=== PATIENT | female | born 1975 | race Caucasian/White ===

== ENCOUNTER 2019-02-05 19:47 | Emergency (ER) | payer OTHER ==
[~2019-02-05] VITALS: Ht 167.6 cm; Wt 68.0 kg
[2019-02-05] MEDS ORDERED: IV NORMAL SALINE 1,000ML 1,000 ML IV SCH (20:12)
--- NOTE | 2019-02-05 20:20 | PHYS DOC ---
Past History Past Medical History: Other Additional Past Medical Histor: tachycardia Smoking: Non-smoker Alcohol Use: Rarely Drug Use: None Adult General Chief Complaint Chief Complaint: CHEST PAIN HPI HPI Patient is a 43-year-old female presents complaining of chest discomfort that started this evening. It is worse with moving around. She has a history of a tachycardia for which she takes metoprolol each evening. She reports taking it last night. Has not taken tonight's dose. Feels like her heart is beating fast. She denies missing any recent doses. She recently traveled here with her from [facility]. Denies any new leg swelling. No known hypercoagulable state. No trauma. No fever or cough. Symptoms are mild to moderate in intensity.[] Review of Systems Review of Systems Constitutional: Denies fever or chills [] Eyes: Denies change in visual acuity, redness, or eye pain [] HENT: Denies nasal congestion or sore throat [] Respiratory: Denies cough or shortness of breath [] Cardiovascular: No additional information not addressed in HPI [] GI: Denies abdominal pain, nausea, vomiting, bloody stools or diarrhea [] : Denies dysuria or hematuria [] Musculoskeletal: Denies back pain or joint pain [] Integument: Denies rash or skin lesions [] Neurologic: Denies headache, focal weakness or sensory changes [] Endocrine: Denies polyuria or polydipsia [] All other systems were reviewed and found to be within normal limits, except as documented in this note. Allergies Allergies Allergies Coded Allergies Type Severity Reaction Last Updated Verified latex Adverse Reaction Unknown 02/05/19 Yes Physical Exam Physical Exam Constitutional: Well developed, well nourished, no acute distress, non-toxic appearance. [] HENT: Normocephalic, atraumatic, bilateral external ears normal, oropharynx moist, no oral exudates, nose normal. [] Eyes: PERRLA, EOMI, conjunctiva normal, no discharge. [] Neck: Normal range of motion, no tenderness, supple, no stridor. [] Cardiovascular:Heart rate is tachycardic with a regular rhythm, no murmur [] Lungs & Thorax: Bilateral breath sounds clear to auscultation [] Abdomen: Bowel sounds normal, soft, no tenderness, no masses, no pulsatile masses. [] Skin: Warm, dry, no erythema, no rash. [] Back: No tenderness, no CVA tenderness. [] Extremities: No tenderness, no cyanosis, no clubbing, ROM intact, no edema. [] Neurologic: Alert and oriented X 3, normal motor function, normal sensory function, no focal deficits noted. [] Psychologic: Affect normal, judgement normal, mood normal. [] EKG EKG EKG shows a sinus tachycardia at 118 bpm, no ST elevations. Normal axis, QTC of 501 ms, no old EKG available for comparison. Interpreted by me at 2000[] Radiology/Procedures Radiology/Procedures PROCEDURE: PORTABLE CHEST 1V Exam: Chest one view INDICATION: Chest pain TECHNIQUE: Frontal view of the chest Comparisons: None FINDINGS: The cardiomediastinal silhouette and pulmonary vessels are within normal limits. The lung and pleural spaces are clear. IMPRESSION: No acute cardiopulmonary process.[] Course & Med Decision Making Course & Med Decision Making Pertinent Labs and Imaging studies reviewed. (See chart for details) ED course: Patient arrived, was placed in bed, and tolerated exam well. She was given medicine for the tachycardia which improved her heart rate. Symptoms improved as well. After the return of laboratory and imaging findings, these were discussed with the patient and family who voiced understanding. All questions were answered. She was discharged in improved condition. Medical decision making: There is no evidence of PE, pneumothorax, pneumonia, acute coronary syndrome, thoracic aneurysm dissection, nor esophageal rupture. 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 Have addressed this with medicine. Dragon Disclaimer Dragon Disclaimer This electronic medical record was generated, in whole or in part, using a voice recognition dictation system. Departure Departure: Impression: Primary Impression: Chest pain Disposition: HOME, SELF-CARE Condition: IMPROVED Patient Instructions: Chest Pain (Nonspecific) Additional Instructions: Follow-up with your primary care team in 2 days. Drink plenty of fluids. Take your medication as prescribed. Return to the ER if worsening discomfort, difficulty breathing, or any other concerns. Scripts Meloxicam (MELOXICAM) 7.5 Mg Tablet 7.5 MG PO DAILY for PAIN, #20 TAB Prov: JUAN BENOIT DO 02/05/19 Problem Qualifiers Primary Impression: Chest pain Chest pain type: unspecified Qualified Codes: R07.9 - Chest pain, unspecified JUAN BENOIT DO Feb 05, 2019 20:20
[2019-02-05 20:21] LABS: BASO % 0 % (0-3); EOS % 0 % (0-3); HEMATOCRIT 37.3 % (36.0-47.0); HEMOGLOBIN 12.1 g/dL (12.0-15.5); LYMPH # 3.1 x10^3/uL (1.0-4.8); LYMPH % 25 % (24-48); MEAN CORPUSCULAR HEMOGLOBIN 28 pg (25-35); MEAN CORPUSCULAR HGB CONC 32 g/dL (31-37); MEAN CORPUSCULAR VOLUME 88 fL (79-100); MONO # 1.2 x10^3/uL (0.0-1.1); MONO % 10 % (0-9); NEUT # 8.1 x10^3uL (1.8-7.7); NEUT % 65 % (31-73); PLATELET COUNT 311 x10^3/uL (140-400); RED BLOOD COUNT 4.25 x10^6/uL (3.50-5.40); RED CELL DISTRIBUTION WIDTH 12.9 % (11.5-14.5); WHITE BLOOD COUNT 12.4 x10^3/uL (4.0-11.0)
[2019-02-05] MEDS ORDERED: ASPIRIN 81 MG TAB.CHEW PO ONE (20:30)
[2019-02-05] MEDS ORDERED: METOPROLOL TARTRATE 5 MG/5 ML VIAL. IV ONE (20:30)
[2019-02-05 20:32] LABS: PREG TEST PT QUAL NEGATIVE (NEG)
[2019-02-05 20:38] LABS: ALBUMIN 3.6 g/dL (3.4-5.0); ALBUMIN/GLOBULIN RATIO 0.9 (1.0-1.7); CALCIUM 9.5 mg/dL (8.5-10.1); CREATININE 0.9 mg/dL (0.6-1.0); GFR 68.3; MAGNESIUM 1.9 mg/dL (1.8-2.4); POTASSIUM 3.3 mmol/L (3.5-5.1); TOTAL BILIRUBIN 0.2 mg/dL (0.2-1.0); TOTAL PROTEIN 7.5 g/dL (6.4-8.2)
--- NOTE | 2019-02-05 21:06 | EKG ---
[address] [address] Test Date: 2019-02-05 Test Time: 20:00:49 Pat Name: DEANNE GARCIA Department: Room: Gender: F Technology Lead: : 1975 Requested By: JUAN BENOIT Order Number: [id number] Reading MD: Measurements Intervals [place] Rate: 118 P: -49 NH: 110 QRS: 31 QRSD: 62 T: 42 QT: 356 QTc: 501 Interpretive Statements SINUS TACHYCARDIA NO SPECIFIC ECG ABNORMALITIES RI6.01 No previous ECG available for comparison
--- NOTE | 2019-02-05 21:12 | RAD ---
Exam: Chest one view INDICATION: Chest pain TECHNIQUE: Frontal view of the chest Comparisons: None FINDINGS: The cardiomediastinal silhouette and pulmonary vessels are within normal limits. The lung and pleural spaces are clear. IMPRESSION: No acute cardiopulmonary process. Electronically signed by: Aneudy Early MD (02/05/2019 9:09 PM) [facility]
[2019-02-05 21:31] LABS: BACTERIA,URINE FEW /HPF (0-FEW); BILIRUBIN,URINE NEG (NEG); CLARITY,URINE CLEAR; COLOR,URINE STRAW; GLUCOSE,URINE NEG (NEG); NITRITE,URINE NEG (NEG); SQUAMOUS EPITHELIAL CELL,UR OCC /LPF; UROBILINOGEN,URINE 0.2 mg/dL (0.2 mg/dL); WBC,URINE OCC /HPF (0-4)
[2019-02-05 21:53] LABS: BARBITURATES NEG (NEG); BENZODIAZEPINES NEG (NEG); CANNABINOIDS NEG (NEG); COCAINE NEG (NEG); METHADONE NEG (NEG); OPIATES NEG (NEG); PHENCYCLIDINE NEG (NEG)
[2019-02-05 22:00] VITALS: BP 97/70
[2019-02-05 22:00] LABS: AMPHETAMINE/METHAMPHETAMINE NEG (NEG)
[2019-02-05] MEDS ORDERED: MELO7.5T29 PO (22:23)
== END 2019-02-05 22:35 | disposition home or self-care (01) ==
LOC: ER 19:47
DX: R07.89 Other chest pain (principal); R00.0 Tachycardia, unspecified; Z91.040 Latex allergy status
CPT/HCPCS: 36415; 71045; 80053; 80307; 81001; 83690; 83735; 83880; 84443; 84484; 84703; 85025; 85379; 85610; 85730; 93005; 96374; 99285; J3490; J7030

== ENCOUNTER 2020-09-20 13:09 | Emergency (ER) | payer OTHER ==
[~2020-09-20] VITALS: Ht 167.6 cm; Wt 70.4 kg
[2020-09-20 13:09] VITALS: BP 120/72
[~2020-09-20 13:09] MED LIST: MELO7.5T29 PO
--- NOTE | 2020-09-20 13:42 | PHYS DOC ---
Past History Past Medical History: Other Additional Past Medical Histor: tachycardia, hypokalemia (FARHANA PANTOJA [employer]) Past Surgical History: , Other Additional Past Surgical Histo: uterine fibroids (FARHANA PANTOAJ [employer]) Smoking: Non-smoker Alcohol Use: Rarely Drug Use: None (FARHANA PANTOJA [employer]) Adult General Chief Complaint Chief Complaint: ABNORMAL LABS [facility] HPI Patient is a 45 year old female who presents with history of chronic low potassium and was taking off of her potassium supplement by her neurologist 2 weeks ago. She states about 10 days after that she began feeling very fatigued all over and having some joint pain and some numbness and tingling that comes and goes in her hands and her feet. She states that 2 days ago she began taking her potassium again and drinking Gatorade. She states that she feels like she has been urinating more frequently. She states that she thinks she is dehydrated. She states that she always feels this way when her potassium gets low. She is here today to have her blood work done. Patient has a history of hypokalemia, tachycardia, , uterine fibroid. She states she has an appointment this coming Monday with her primary care physician. She states she has also been having off and on nausea feeling but no vomiting. She denies abdominal pain, chest pain, shortness of breath, numbness or tingling at this time, focal weakness, joint swelling, extremity edema, vision changes, headache, dizziness, syncope, falls, back pain, pain or blood in her urine, fever, cough. ([employer]NA PANT[employer]JA [employer]) Review of Systems Review of Systems Constitutional: Denies fever or chills [] Eyes: Denies change in visual acuity, redness, or eye pain [] HENT: Denies nasal congestion or sore throat [] Respiratory: Denies cough or shortness of breath [] Cardiovascular: No additional information not addressed in HPI [] GI: Denies abdominal pain. + nausea, denies vomiting, bloody stools or diarrhea [] : Denies dysuria or hematuria [] Musculoskeletal: Denies back pain. + Bilateral elbow and ankle joint pain. + Generalized weakness [] Integument: Denies rash or skin lesions [] Neurologic: Denies headache, focal weakness or sensory changes + generalized weakness. + Intermittent numbness and tingling in hands and feet [] Endocrine: + polyuria or denies polydipsia [] All other systems were reviewed and found to be within normal limits, except as documented in this note. ([facility] [employer] [facility] [employer]) Allergies Allergies Allergies Coded Allergies Type Severity Reaction Last Updated Verified latex Adverse Reaction Unknown 02/05/19 Yes ([facility] [employer]) Physical Exam Physical Exam Constitutional: Well developed, well nourished, no acute distress, non-toxic appearance. [] HENT: Normocephalic, atraumatic, bilateral external ears normal, oropharynx moist, no oral exudates, nose normal. [] Eyes: PERRLA, EOMI, conjunctiva normal, no discharge. [] Neck: Normal range of motion, no tenderness, supple, no stridor. [] Cardiovascular:Heart rate regular rhythm, no murmur [] Lungs & Thorax: Bilateral breath sounds clear to auscultation [] Abdomen: Bowel sounds normal, soft, no tenderness, no masses, no pulsatile masses. [] Skin: Warm, dry, no erythema, no rash. [] Back: No tenderness, no CVA tenderness. [] Extremities: No tenderness, no cyanosis, no clubbing, ROM intact, no edema. [] Neurologic: Alert and oriented X 3, normal motor function, normal sensory function, no focal deficits noted. [] Psychologic: Affect normal, judgement normal, mood normal. Normal physical exam [] ([facility] Current Patient Data Vital Signs Vital Signs Date Time Temp Pulse Resp B/P (MAP) Pulse Ox O2 Delivery O2 Flow Rate FiO2 09/20/20 13:09 97.7 88 16 120/72 (88) 99 Room Air ([facility]) EKG EKG [address] Perry with sinus rhythm and no STEMI ([facility]) Radiology/Procedures Radiology/Procedures [] Impressions: [place] [address] IMAGING REPORT Signed PATIENT: DEANNE GARCIA ACCOUNT: [id number] : 1975 LOCATION: ER AGE: 45 SEX: F EXAM STATUS: REG ER ORD. PHYSICIAN: FARHANA PANTOJA APRN REASON: epigastric pain PROCEDURE: PORTABLE CHEST 1V EXAM: Chest, single view. HISTORY: Epigastric pain. COMPARISON: 02/05/2019. FINDINGS: A frontal view of the chest is obtained. There is no infiltrate, pleural effusion or pneumothorax. The heart is normal in size. IMPRESSION: No acute pulmonary finding. Electronically signed by: Elyssa Aguillon MD (09/20/2020 1:51 PM) [id number] DICTATED AND SIGNED BY: ELYSSA AGUILLON MD DATE: 09/20/20 1351 CC: FARHANA PANTOJA APRN; REHANA PERRY DO; PCP,UNKNOWN ~MTH0 0 (FARHANA PANTOJA APRN) Heart Score C/O Chest Pain: No Risk Factors: Risk Factors: DM, Current or recent (<one month) smoker, HTN, HLP, family history of CAD, obesity. Risk Scores: Risk Factors: DM, Current or recent (<one month) smoker, HTN, HLP, family history of CAD, obesity. (FARHANA PANTOJA APRN) Course & Med Decision Making Course & Med Decision Making Pertinent Labs and Imaging studies reviewed. (See chart for details) See HPI. Alert and oriented x4. Ambulatory with a steady gait. Speaks in full complete sentences. Skin pink warm and dry. Reflexes are intact. Vital signs within normal limits. Equal strength in stem sizer and movements. Cap refill less than 2 seconds. Blood work is unremarkable. Her urine does have blood in it but this is chronic for her as she told me that she has had blood in her urine and she is having a kidney biopsy to see why she is having blood in her urine. EKG was normal. Chest x-ray showed no acute findings. Patient is stable and she is to follow-up with her primary care on Monday as planned. [] (FARHANA PANTOJA APRN) Course & Med Decision Making I oversaw on the above date of service of this patient and discussed the care with the TICKET [employer]. I agree with the findings, plan of care, and disposition as documented. Patient to resume home potassium and follow-up with PCP as advised Electronically signed, Rehana Perry DO (REHANA PERRY DO) Tyler Disclaimer Tyler Disclaimer This electronic medical record was generated, in whole or in part, using a voice recognition dictation system. (FARHANA PANTOJA APRN) Departure Departure: Impression: Primary Impression: Fatigue Disposition: 01 DC HOME SELF CARE/HOMELESS Condition: STABLE Referrals: PCP,UNKNOWN (PCP) Patient Instructions: Fatigue Additional Instructions: Follow-up with your primary care provider on Monday as planned. Drink plenty of fluids. If you begin having any shortness of breath, chest pain or focal weaknesses return to the emergency room. Problem Qualifiers Primary Impression: Fatigue Fatigue type: unspecified Qualified Codes: R53.83 - Other fatigue FARHANA PANTOJA APRN Sep 20, 2020 13:42 REHANA PERRY DO Sep 20, 2020 16:46
--- NOTE | 2020-09-20 13:54 | RAD ---
EXAM: Chest, single view. HISTORY: Epigastric pain. COMPARISON: 02/05/2019. FINDINGS: A frontal view of the chest is obtained. There is no infiltrate, pleural effusion or pneumo thorax. The heart is normal in size. IMPRESSION: No acute pulmonary finding. Electronically signed by: Elyssa Jacome MD (09/20/2020 1:51 PM) [id number]
--- NOTE | 2020-09-20 14:15 | EKG ---
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
[2020-09-20 14:36] LABS: BASO % 0 % (0-3); EOS % 0 % (0-3); HEMATOCRIT 36.5 % (36.0-47.0); HEMOGLOBIN 11.5 g/dL (12.0-15.5); LYMPH # 1.9 x10^3/uL (1.0-4.8); LYMPH % 22 % (24-48); MEAN CORPUSCULAR HEMOGLOBIN 26 pg (25-35); MEAN CORPUSCULAR HGB CONC 32 g/dL (31-37); MEAN CORPUSCULAR VOLUME 82 fL (79-100); MONO # 0.8 x10^3/uL (0.0-1.1); MONO % 10 % (0-9); NEUT # 5.7 x10^3uL (1.8-7.7); NEUT % 68 % (31-73); PLATELET COUNT 319 x10^3/uL (140-400); RED BLOOD COUNT 4.44 x10^6/uL (3.50-5.40); RED CELL DISTRIBUTION WIDTH 13.9 % (11.5-14.5); WHITE BLOOD COUNT 8.5 x10^3/uL (4.0-11.0)
[2020-09-20 14:40] LABS: U PREG PATIENT NEGATIVE (NEG)
[2020-09-20 14:41] LABS: BILIRUBIN,URINE NEG (NEG); CLARITY,URINE CLEAR; COLOR,URINE STRAW; GLUCOSE,URINE NEG (NEG)
[2020-09-20 14:42] LABS: NITRITE,URINE NEG (NEG); UROBILINOGEN,URINE 0.2 mg/dL (0.2 mg/dL)
[2020-09-20 14:43] LABS: CALCIUM 9.1 mg/dL (8.5-10.1); CREATININE 0.8 mg/dL (0.6-1.0); GFR 77.6; POTASSIUM 3.5 mmol/L (3.5-5.1)
[2020-09-20 14:45] LABS: BACTERIA,URINE FEW /HPF (0-FEW); RBC,URINE OCC /HPF (0-2); SQUAMOUS EPITHELIAL CELL,UR FEW /LPF; WBC,URINE OCC /HPF (0-4)
[2020-09-20 14:49] LABS: ALBUMIN 3.5 g/dL (3.4-5.0); ALBUMIN/GLOBULIN RATIO 0.9 (1.0-1.7); MAGNESIUM 2.1 mg/dL (1.8-2.4); TOTAL BILIRUBIN 0.3 mg/dL (0.2-1.0); TOTAL PROTEIN 7.6 g/dL (6.4-8.2)
== END 2020-09-20 15:03 | disposition home or self-care (01) ==
LOC: ER 13:09
DX: R53.83 Other fatigue (principal); Z91.040 Latex allergy status
CPT/HCPCS: 36415; 71045; 80053; 81001; 81025; 83735; 84484; 85025; 93005; 99285-25

== ENCOUNTER → 2020-09-29 | Outpatient (CLI) | payer OTHER ==
[2020-09-20 13:09] VITALS: BP 120/72
--- NOTE | 2020-09-29 15:50 | RAD ---
Complete pelvic ultrasound INDICATION: Fibroid follow-up. Menorrhagia. LMP 09/24/2020. COMPARISON: None TECHNIQUE: Transabdominal ultrasound of the pelvis was performed using the distended urinary bladder as an acoustic window. FINDINGS: The uterus measures 13.9 x 7.5 x 5.9 cm. Endometrium was not well visualized due to a large, dominant anterior fibroid that measures 4.5 x 5.6 x 3.8 cm. The right ovary measures 2.7 x 2.8 x 1.2 cm and demonstrates normal blood flow. The left ovary measures 2.9 x 3.1 x 1.2 cm and demonstrates normal blood flow. No pelvic free fluid. Visualized urinary bladder is unremarkable. IMPRESSION: Large, anterior uterine mass measuring 4.5 x 5.6 x 3.8 cm, presumably a benign leiomyoma. Correlation with previous imaging may be helpful. Continued follow-up is recommended. Electronically signed by: Ahmet Segundo MD (09/29/2020 3:48 PM) [id number]
== END ==
LOC: US 09:50
PROVIDERS: ATTEND Obstetrics & Gynecology
DX: N92.0 Excessive and frequent menstruation with regular cycle (principal)
CPT/HCPCS: 76856